=== PATIENT | male | born 1955 | race Caucasian/White ===

== ENCOUNTER 2017-02-05 10:37 | Inpatient (IN) | payer SELFPAY ==
[~2017-02-05] VITALS: Ht 195.6 cm; Wt 136.6 kg
[~2017-02-05 10:37] MED LIST: AMLODIPINE BESYL5 MG PO; ASPIR 8181 M1 PO; BACTRIM,SEPT1 TABLET PO; GLUCOPHAGE500 MG PO; KEFLEX500 MG PO; LISINOPRIL5 MG PO; PERCOCET 5/31 TABLET PO
[2017-02-05 11:46] LABS: BASOPHIL COUNT 0.1 K/uL (0-0.1); EOSINOPHIL (%) 0.5 % (0-5); EOSINOPHIL COUNT 0.1 K/uL (0-0.3); HEMATOCRIT 40.8 % (38.0-50.0); IMMATURE GRANULOCYTE (%) 0.6 % (0.0-0.7); IMMATURE GRANULOCYTE COUNT 0.1 K/uL; INSTRUMENT ABS NEUTROPHIL CT 11.3 K/uL; LYMPHOCYTE COUNT 1.9 K/uL (1.0-2.8); MCH 29.4 PG (29.0-34.0); MCHC 34.1 G/DL (30.0-36.0); MCV 86.4 FL (86-99); MEAN PLAT.VOLUME 10.1 uM^3 (9.0-12.4); MONOCYTE (%) 10.2 % (3-12); MONOCYTE COUNT 1.5 K/uL (0-0.8); NEUTROPHIL (%) 75.9 % (45-76); NEUTROPHIL COUNT 11.3 K/uL (1.8-6.4); PLATELET COUNT 391 K/uL (156-360); RBC DIS.WIDTH-CV 12.5 % (11.8-14.6); RBC DIS.WIDTH-SD 39.8 % (39-53); RED BLOOD COUNT 4.72 M/uL (4.00-5.50); WHITE BLOOD COUNT 14.9 K/uL (4.1-10.2)
[2017-02-05 11:58] LABS: CHLORIDE 100 mEq/L (99-109); POTASSIUM 3.9 mEq/L (3.7-5.4); SODIUM 134 mEq/L (136-147)
[2017-02-05 12:00] LABS: GLUCOSE 125 mg/dL (70-99)
[2017-02-05 12:01] LABS: ANION GAP 12 MEQ/L (2-14)
[2017-02-05 12:02] LABS: TOTAL BILIRUBIN 0.6 mg/dL (0.0-1.0)
[2017-02-05 12:03] LABS: ALKALINE PHOSPHATASE 88 IU/L (3-129)
[2017-02-05 12:04] LABS: GFR ESTIMATE (CALCULATED) > 59 mL/min/
[2017-02-05 12:05] LABS: UREA NITROGEN (BUN) 9 mg/dL (9-23)
[2017-02-05 12:22] LABS: ADD MIUA? NO; BILIRUBIN NEGATIVE; BLOOD NEGATIVE; COLOR YELLOW ((YELLOW)); GLUCOSE (STRIP) NEGATIVE; KETONES 20; LEUKOCYTES NEGATIVE; NITRITE NEGATIVE; PROTEIN (STRIP) NEGATIVE; UCUL ADDED? NO
[2017-02-05] MEDS ORDERED: LACTULOSE10 GM/151 PO (12:23)
[2017-02-05] MEDS ORDERED: DOCUSATE SODIU100 MG PO (12:24)
[2017-02-05 12:34] LABS: SPECIFIC GRAVITY > 1.080 (1.000-1.030)
[2017-02-05 13:42] LABS: INTER. NORMALIZED RATIO 1.1; PROTHROMBIN TIME 12.9 SEC (10.2-12.9)
[2017-02-05 15:07] VITALS: BP 184/99
[2017-02-05 17:48] LABS: POINT-OF-CARE METER ID UU14188625
[2017-02-05 19:24] VITALS: BP 171/89
[2017-02-06 06:34] LABS: HEMATOCRIT 38.1 % (38.0-50.0); MCH 28.7 PG (29.0-34.0); MCHC 32.8 G/DL (30.0-36.0); MCV 87.4 FL (86-99); MEAN PLAT.VOLUME 10.5 uM^3 (9.0-12.4); PLATELET COUNT 384 K/uL (156-360); RBC DIS.WIDTH-CV 12.6 % (11.8-14.6); RED BLOOD COUNT 4.36 M/uL (4.00-5.50); WHITE BLOOD COUNT 13.9 K/uL (4.1-10.2)
[2017-02-06 06:46] LABS: INTER. NORMALIZED RATIO 1.1
[2017-02-06 06:49] LABS: PTT 31.4 SEC (25-37)
[2017-02-06 06:56] LABS: ANION GAP 9 MEQ/L (2-14); CHLORIDE 100 MEQ/L (99-109); GFR ESTIMATE (CALCULATED) > 59 mL/min/; GLUCOSE 133 mg/dL (70-99); POTASSIUM 4.3 MEQ/L (3.7-5.4); SAMPLE HEMOLYSIS CHECK 0; SAMPLE ICTERIC CHECK 0; SAMPLE LIPEMIA CHECK 0; SODIUM 134 MEQ/L (136-147); UREA NITROGEN (BUN) 7 mg/dL (9-23)
[2017-02-06 07:01] VITALS: BP 147/65
[2017-02-06 07:06] LABS: POINT-OF-CARE METER ID UU13113717
[2017-02-06 11:14] LABS: POINT-OF-CARE METER ID UU13113717
[2017-02-06 11:21] VITALS: BP 135/64
[2017-02-06 15:12] VITALS: BP 147/70
[2017-02-06 19:23] VITALS: BP 140/63
[2017-02-06 20:53] LABS: POINT-OF-CARE METER ID UU14174225
[2017-02-06 23:48] VITALS: BP 173/77
[2017-02-07 03:14] VITALS: BP 140/68
[2017-02-07 07:05] LABS: POINT-OF-CARE METER ID UU14174225
[2017-02-07 07:08] VITALS: BP 140/68
[2017-02-07 10:01] LABS: HEMATOCRIT 36.7 % (38.0-50.0); MCH 29.6 PG (29.0-34.0); MCHC 33.5 G/DL (30.0-36.0); MCV 88.2 FL (86-99); MEAN PLAT.VOLUME 10.2 uM^3 (9.0-12.4); PLATELET COUNT 351 K/uL (156-360); RBC DIS.WIDTH-CV 12.8 % (11.8-14.6); RBC DIS.WIDTH-SD 41.2 % (39-53); RED BLOOD COUNT 4.16 M/uL (4.00-5.50); WHITE BLOOD COUNT 10.6 K/uL (4.1-10.2)
[2017-02-07 11:10] VITALS: BP 142/63
[2017-02-07 11:15] LABS: POINT-OF-CARE METER ID UU14174225
[2017-02-07 15:04] VITALS: BP 174/86
[2017-02-07 16:15] LABS: POINT-OF-CARE METER ID UU13113717
[2017-02-07 19:56] VITALS: BP 163/79
[2017-02-07 21:21] LABS: POINT-OF-CARE METER ID UU14188625
[2017-02-07 23:20] VITALS: BP 136/65
[2017-02-08 07:50] VITALS: BP 151/86
[2017-02-08 08:28] LABS: POINT-OF-CARE METER ID UU14174225
[2017-02-08 08:52] LABS: HEMATOCRIT 41.1 % (38.0-50.0); MCH 28.5 PG (29.0-34.0); MCHC 32.8 G/DL (30.0-36.0); MCV 86.9 FL (86-99); PLATELET COUNT 395 K/uL (156-360); RBC DIS.WIDTH-CV 12.5 % (11.8-14.6); RBC DIS.WIDTH-SD 39.8 % (39-53); RED BLOOD COUNT 4.73 M/uL (4.00-5.50); WHITE BLOOD COUNT 11.4 K/uL (4.1-10.2)
[2017-02-08 09:24] LABS: ANION GAP 9 MEQ/L (2-14); CHLORIDE 101 MEQ/L (99-109); GFR ESTIMATE (CALCULATED) > 59 mL/min/; GLUCOSE 122 mg/dL (70-99); POTASSIUM 4.6 MEQ/L (3.7-5.4); SAMPLE HEMOLYSIS CHECK 0; SAMPLE ICTERIC CHECK 0; SAMPLE LIPEMIA CHECK 0; SODIUM 137 MEQ/L (136-147); UREA NITROGEN (BUN) 5 mg/dL (9-23)
[2017-02-08 14:11] LABS: POINT-OF-CARE METER ID UU13113717
[2017-02-08 16:40] VITALS: BP 180/96
[2017-02-09] MEDS ORDERED: VITAMIN D31000 UNIT PO (14:29)
== END 2017-02-08 17:10 | disposition left against medical advice (07) | DRG 392 ==
LOC: EME 10:37 → EDOF 11:56 → 5SOUTH 11:56 → ENRESERV 12:01 → EDOF 12:47 → ENRESERV 13:18 → 5SOUTH 14:44
PROVIDERS: Emergency Medicine; Internal Medicine; Nurse Practitioner Adult Health; Radiology Diagnostic Radiology
DX: K57.20 Diverticulitis of large intestine with perforation and abscess without bleeding (principal); E87.1 Hypo-osmolality and hyponatremia; E86.0 Dehydration; K59.00 Constipation, unspecified; E11.9 Type 2 diabetes mellitus without complications; I10 Essential (primary) hypertension; N40.1 Benign prostatic hyperplasia with lower urinary tract symptoms; R35.1 Nocturia; F41.0 Panic disorder [episodic paroxysmal anxiety]; K80.20 Calculus of gallbladder without cholecystitis without obstruction; F17.210 Nicotine dependence, cigarettes, uncomplicated; E66.01 Morbid (severe) obesity due to excess calories; Z68.35 Body mass index [BMI] 35.0-35.9, adult; Z79.84 Long term (current) use of oral hypoglycemic drugs; Z82.49 Family history of ischemic heart disease and other diseases of the circulatory system; Z87.19 Personal history of other diseases of the digestive system
CPT/HCPCS: 36415; 71010; 74177; 80048; 80053; 81003; 82378; 82565; 82948; 83605; 84520; 85025; 85027; 85610; 85730; 87040; 93005; 99281; 99284; G0103; J1650; J1815; J2543; J7030; J7050; S0028

== ENCOUNTER → 2017-02-22 | Outpatient (CLI) | payer OTHER ==
[~2017-02-22] MED LIST changes: +DOCUSATE SODIU100 MG PO; +LACTULOSE10 GM/151 PO; +VITAMIN D31000 UNIT PO
== END | disposition home or self-care (01) ==
LOC: RAD 09:23
DX: K57.30 Diverticulosis of large intestine without perforation or abscess without bleeding (principal); K57.32 Diverticulitis of large intestine without perforation or abscess without bleeding; K63.89 Other specified diseases of intestine
CPT/HCPCS: 74177

== ENCOUNTER 2017-03-13 06:21 | Inpatient (IN) | payer OTHER ==
[~2017-03-13] VITALS: Ht 195.6 cm; Wt 131.8 kg
[2017-03-13 07:37] LABS: BASOPHIL COUNT 0.1 K/uL (0-0.1); EOSINOPHIL (%) 1.3 % (0-5); EOSINOPHIL COUNT 0.1 K/uL (0-0.3); HEMATOCRIT 39.3 % (38.0-50.0); IMMATURE GRANULOCYTE (%) 0.6 % (0.0-0.7); IMMATURE GRANULOCYTE COUNT 0.1 K/uL; INSTRUMENT ABS NEUTROPHIL CT 7.3 K/uL; LYMPHOCYTE COUNT 1.9 K/uL (1.0-2.8); MCH 28.7 PG (29.0-34.0); MCHC 33.3 G/DL (30.0-36.0); MCV 86.2 FL (86-99); MEAN PLAT.VOLUME 10.4 uM^3 (9.0-12.4); MONOCYTE (%) 11.5 % (3-12); MONOCYTE COUNT 1.2 K/uL (0-0.8); NEUTROPHIL COUNT 7.3 K/uL (1.8-6.4); PLATELET COUNT 338 K/uL (156-360); RBC DIS.WIDTH-CV 14.3 % (11.8-14.6); RBC DIS.WIDTH-SD 45.1 % (39-53); RED BLOOD COUNT 4.56 M/uL (4.00-5.50); WHITE BLOOD COUNT 10.7 K/uL (4.1-10.2)
[2017-03-13 08:15] LABS: ALKALINE PHOSPHATASE 87 IU/L (3-129); ANION GAP 9 MEQ/L (2-14); CHLORIDE 105 MEQ/L (99-109); GFR ESTIMATE (CALCULATED) > 59 mL/min/ (58.99-99999); GLUCOSE 153 mg/dL (70-99); LIPASE 8 U/L (1.0-51.0); SAMPLE HEMOLYSIS CHECK 0; SAMPLE ICTERIC CHECK 0; SAMPLE LIPEMIA CHECK 0; SODIUM 138 MEQ/L (136-147); TOTAL BILIRUBIN 0.5 MG/DL (0.0-1.0); UREA NITROGEN (BUN) 11 mg/dL (9-23)
[2017-03-13 09:17] LABS: C DIFF TOXIN NEGATIVE (NEGATIVE)
[2017-03-13 09:18] LABS: PROBE CHECK PASS; SPECIMEN PROCESSING CONTROL PASS
[2017-03-13] MEDS ORDERED: MIRALAX17 GM PO (10:55)
[2017-03-13 11:01] LABS: ADD MIUA? NO; BILIRUBIN NEGATIVE; BLOOD NEGATIVE; COLOR YELLOW ((YELLOW)); GLUCOSE (STRIP) NEGATIVE; KETONES NEGATIVE; LEUKOCYTES NEGATIVE; NITRITE NEGATIVE; PROTEIN (STRIP) NEGATIVE; UCUL ADDED? NO
[2017-03-13 11:11] LABS: SPECIFIC GRAVITY 1.055 (1.000-1.030)
[2017-03-13 11:23] VITALS: BP 165/88
[2017-03-13] MEDS ORDERED: METFORMIN HCL500 MG PO (17:53)
[2017-03-13] MEDS ORDERED: FISH OIL 1,0001 EAC7 PO (17:59)
[2017-03-14] MEDS ORDERED: FLAGYL500 MG PO ×3 (15:58→16:04)
[2017-03-14] MEDS ORDERED: BACTRIM,SEPT1 TABLET PO (15:58)
== END 2017-03-13 11:24 | disposition left against medical advice (07) | DRG 392 ==
LOC: EME 06:21 → EDOF 11:08 → ENRESERV 11:10 → CANRESERV 11:10 → EDOF 11:24
PROVIDERS: Emergency Medicine
DX: K57.20 Diverticulitis of large intestine with perforation and abscess without bleeding (principal); I10 Essential (primary) hypertension; F17.200 Nicotine dependence, unspecified, uncomplicated; N50.819 Testicular pain, unspecified; Z53.29 Procedure and treatment not carried out because of patient's decision for other reasons
CPT/HCPCS: 74177; 80053; 81003; 83690; 85025; 87493; 99281; 99284; J7030

== ENCOUNTER 2017-03-13 16:00 | Inpatient (IN) | payer OTHER ==
[~2017-03-13] VITALS: Ht 195.6 cm; Wt 125.4 kg
[~2017-03-13 16:00] MED LIST changes: +MIRALAX17 GM PO
[2017-03-13 17:16] LABS: MCH 28.4 PG (29.0-34.0); MCHC 32.8 G/DL (30.0-36.0); MCV 86.7 FL (86-99); MEAN PLAT.VOLUME 10.1 uM^3 (9.0-12.4); PLATELET COUNT 320 K/uL (156-360); RBC DIS.WIDTH-SD 44.6 % (39-53); WHITE BLOOD COUNT 11.7 K/uL (4.1-10.2)
[2017-03-13] MEDS ORDERED: METFORMIN HCL500 MG PO (17:53)
[2017-03-13] MEDS ORDERED: FISH OIL 1,0001 EAC7 PO (17:59)
[2017-03-13 19:26] VITALS: BP 154/76
[2017-03-14 06:44] LABS: EOSINOPHIL (%) 0.8 % (0-5); EOSINOPHIL COUNT 0.1 K/uL (0-0.3); HEMATOCRIT 36.5 % (38.0-50.0); IMMATURE GRANULOCYTE (%) 0.5 % (0.0-0.7); IMMATURE GRANULOCYTE COUNT 0.1 K/uL; INSTRUMENT ABS NEUTROPHIL CT 7.9 K/uL; LYMPHOCYTE COUNT 1.6 K/uL (1.0-2.8); MCH 28.2 PG (29.0-34.0); MCHC 32.6 G/DL (30.0-36.0); MCV 86.5 FL (86-99); MEAN PLAT.VOLUME 10.2 uM^3 (9.0-12.4); MONOCYTE (%) 11.2 % (3-12); MONOCYTE COUNT 1.2 K/uL (0-0.8); NEUTROPHIL (%) 72.8 % (45-76); NEUTROPHIL COUNT 7.9 K/uL (1.8-6.4); PLATELET COUNT 303 K/uL (156-360); RBC DIS.WIDTH-CV 14.2 % (11.8-14.6); RBC DIS.WIDTH-SD 45.4 % (39-53); RED BLOOD COUNT 4.22 M/uL (4.00-5.50); WHITE BLOOD COUNT 10.8 K/uL (4.1-10.2)
[2017-03-14 07:11] LABS: ANION GAP 11 MEQ/L (2-14); CHLORIDE 106 MEQ/L (99-109); GFR ESTIMATE (CALCULATED) > 59 mL/min/ (58.99-99999); GLUCOSE 128 mg/dL (70-99); POTASSIUM 4.3 MEQ/L (3.7-5.4); SAMPLE HEMOLYSIS CHECK 0; SAMPLE ICTERIC CHECK 0; SAMPLE LIPEMIA CHECK 0; SODIUM 139 MEQ/L (136-147); UREA NITROGEN (BUN) 9 mg/dL (9-23)
[2017-03-14 07:55] VITALS: BP 160/84
[2017-03-14] MEDS ORDERED: BACTRIM,SEPT1 TABLET PO (15:58)
[2017-03-14] MEDS ORDERED: FLAGYL500 MG PO ×3 (15:58→16:04)
== END 2017-03-14 16:10 | disposition home or self-care (01) | DRG 392 ==
LOC: EME 16:00 → EDOF 18:42 → ENRESERV 18:43 → 5EAST 19:11
PROVIDERS: Hospitalist; Physician Assistant Medical
DX: K57.20 Diverticulitis of large intestine with perforation and abscess without bleeding (principal); I10 Essential (primary) hypertension; E11.9 Type 2 diabetes mellitus without complications; G47.30 Sleep apnea, unspecified; F17.210 Nicotine dependence, cigarettes, uncomplicated; E66.9 Obesity, unspecified; Z68.32 Body mass index [BMI] 32.0-32.9, adult; Z79.82 Long term (current) use of aspirin; Z79.84 Long term (current) use of oral hypoglycemic drugs; Z23 Encounter for immunization
CPT/HCPCS: 80048; 83605; 85025; 85027; 87040; 90686; 99281; 99285; J1644; J1885; J2543; J7030; J7050

== ENCOUNTER → 2017-04-01 | Outpatient (CLI) | payer OTHER ==
[~2017-04-01] VITALS: Ht 195.6 cm; Wt 126.6 kg
[~2017-04-01] MED LIST changes: +ATENOLOL25 MG PO; +BACTRIM,SEPT1 TABLE1 PO; +FISH OIL 1,0001 EAC7 PO; +FLAGYL500 MG PO; +METFORMIN HCL500 MG PO; +TAPAZOLE5 MG PO
== END | disposition home or self-care (01) ==
LOC: AMB 03-25 10:45
PROVIDERS: Internal Medicine Gastroenterology
PROC: 0DBE8ZX Excision of Large Intestine, Via Natural or Artificial Opening Endoscopic, Diagnostic (ICD-10-PCS; principal; 2017-04-01)
DX: K57.30 Diverticulosis of large intestine without perforation or abscess without bleeding (principal); K63.2 Fistula of intestine; Z53.09 Procedure and treatment not carried out because of other contraindication; K59.00 Constipation, unspecified; I10 Essential (primary) hypertension; E11.9 Type 2 diabetes mellitus without complications; Z86.010 Personal history of colon polyps; I25.10 Atherosclerotic heart disease of native coronary artery without angina pectoris; Z95.5 Presence of coronary angioplasty implant and graft; F17.200 Nicotine dependence, unspecified, uncomplicated; Z82.49 Family history of ischemic heart disease and other diseases of the circulatory system; Z79.84 Long term (current) use of oral hypoglycemic drugs; Z79.82 Long term (current) use of aspirin; Z88.8 Allergy status to other drugs, medicaments and biological substances
CPT/HCPCS: 82948; 88305; J2250; J3010

== ENCOUNTER 2017-04-02 11:24 | Inpatient (IN) | payer OTHER ==
[~2017-04-02] VITALS: Ht 195.6 cm; Wt 135.5 kg
[2017-04-02 12:23] LABS: HEMATOCRIT 39.3 % (38.0-50.0); MCHC 33.1 G/DL (30.0-36.0); MCV 84.7 FL (86-99); RBC DIS.WIDTH-CV 14.3 % (11.8-14.6); RBC DIS.WIDTH-SD 44.1 % (39-53); RED BLOOD COUNT 4.64 M/uL (4.00-5.50); WHITE BLOOD COUNT 13.9 K/uL (4.1-10.2)
[2017-04-02 12:27] LABS: PLATELET COUNT 442 K/uL (156-360)
[2017-04-02 12:31] LABS: ALBUMIN 3.3 g/dL (3.2-4.8); CHLORIDE 100 mEq/L (99-109); POTASSIUM 3.7 mEq/L (3.7-5.4); SODIUM 137 mEq/L (136-147)
[2017-04-02 12:33] LABS: GLUCOSE 111 mg/dL (70-99)
[2017-04-02 12:34] LABS: TOTAL PROTEIN 7.1 g/dL (6.4-8.3)
[2017-04-02 12:35] LABS: TOTAL BILIRUBIN 0.5 mg/dL (0.0-1.0)
[2017-04-02 12:37] LABS: ALKALINE PHOSPHATASE 82 IU/L (3-129); CREATININE 0.8 mg/dL (0.6-1.3); GFR ESTIMATE (CALCULATED) > 59 mL/min/ (58.99-99999)
[2017-04-02 12:38] LABS: UREA NITROGEN (BUN) 8 mg/dL (9-23)
[2017-04-02 12:39] LABS: AST (GOT) 47 IU/L (2-34)
[2017-04-02 12:40] LABS: ALT (GPT) 86 IU/L (3-49)
[2017-04-02 13:46] LABS: PREALBUMIN 7.4 mg/dL (10-40)
[2017-04-02 16:55] VITALS: BP 128/60
[2017-04-02 21:30] VITALS: BP 151/82
[2017-04-03 00:30] VITALS: BP 145/70
[2017-04-03 07:00] LABS: HEMATOCRIT 34.8 % (38.0-50.0); HEMOGLOBIN 11.5 G/DL (12.5-16.6); MCH 27.7 PG (29.0-34.0); MCV 83.9 FL (86-99); PLATELET COUNT 365 K/uL (156-360); RBC DIS.WIDTH-CV 14.3 % (11.8-14.6); RBC DIS.WIDTH-SD 43.8 % (39-53); RED BLOOD COUNT 4.15 M/uL (4.00-5.50); WHITE BLOOD COUNT 13.8 K/uL (4.1-10.2)
[2017-04-03 07:25] LABS: CHLORIDE 102 MEQ/L (99-109); CREATININE 0.6 MG/DL (0.6-1.3); GFR ESTIMATE (CALCULATED) > 59 mL/min/ (58.99-99999); GLUCOSE 150 mg/dL (70-99); MAGNESIUM 1.7 mg/dl (1.3-2.7); PHOSPHORUS 3.2 mg/dL (2.5-4.9); POTASSIUM 3.3 MEQ/L (3.7-5.4); SODIUM 134 MEQ/L (136-147); TRIGLYCERIDES 93 MG/DL (Normal: <150); UREA NITROGEN (BUN) 4 mg/dL (9-23)
[2017-04-03 07:49] LABS: Estimated Average Glucose 163 mg/dL (70-123); HEMOGLOBIN A1c (GLYCOHEMOGLOB) 7.3 % HGB (Below 5.7)
[2017-04-03 08:00] VITALS: BP 157/78
[2017-04-04 04:59] LABS: HEMATOCRIT 35.6 % (38.0-50.0); MCH 28.2 PG (29.0-34.0); MCHC 33.7 G/DL (30.0-36.0); MCV 83.8 FL (86-99); PLATELET COUNT 354 K/uL (156-360); RBC DIS.WIDTH-CV 14.3 % (11.8-14.6); RBC DIS.WIDTH-SD 43.8 % (39-53); RED BLOOD COUNT 4.25 M/uL (4.00-5.50); WHITE BLOOD COUNT 14.3 K/uL (4.1-10.2)
[2017-04-04 05:12] LABS: CHLORIDE 101 mEq/L (99-109); SODIUM 133 mEq/L (136-147)
[2017-04-04 05:13] LABS: MAGNESIUM 1.8 mg/dL (1.3-2.7)
[2017-04-04 05:15] LABS: GLUCOSE 151 mg/dL (70-99)
[2017-04-04 05:18] LABS: CREATININE 0.7 mg/dL (0.6-1.3); GFR ESTIMATE (CALCULATED) > 59 mL/min/ (58.99-99999); PHOSPHORUS 3.5 mg/dL (2.5-4.9)
[2017-04-04 05:19] LABS: UREA NITROGEN (BUN) 4 mg/dL (9-23)
[2017-04-04 08:00] VITALS: BP 130/63
[2017-04-04 20:30] VITALS: BP 145/78
[2017-04-05 06:30] LABS: APPEARANCE CLEAR ((CLEAR)); BILIRUBIN NEGATIVE; BLOOD SMALL; COLOR YELLOW ((YELLOW)); GLUCOSE (STRIP) 50; KETONES NEGATIVE; LEUKOCYTES NEGATIVE; NITRITE NEGATIVE; PROTEIN (STRIP) NEGATIVE; SPECIFIC GRAVITY 1.016 (1.000-1.030)
[2017-04-05 06:39] LABS: BASOPHIL (%) 0.3 % (0-1); EOSINOPHIL (%) 0.5 % (0-5); EOSINOPHIL COUNT 0.1 K/uL (0-0.3); HEMATOCRIT 38.9 % (38.0-50.0); HEMOGLOBIN 12.7 G/DL (12.5-16.6); IMMATURE GRANULOCYTE (%) 0.5 % (0.0-0.7); LYMPHOCYTE (%) 12.5 % (15-42); LYMPHOCYTE COUNT 1.6 K/uL (1.0-2.8); MCH 27.3 PG (29.0-34.0); MCHC 32.6 G/DL (30.0-36.0); MCV 83.5 FL (86-99); MONOCYTE (%) 12.2 % (3-12); MONOCYTE COUNT 1.6 K/uL (0-0.8); NEUTROPHIL COUNT 9.5 K/uL (1.8-6.4); PLATELET COUNT 403 K/uL (156-360); RBC DIS.WIDTH-CV 14.4 % (11.8-14.6); RBC DIS.WIDTH-SD 43.9 % (39-53); RED BLOOD COUNT 4.66 M/uL (4.00-5.50); WHITE BLOOD COUNT 12.9 K/uL (4.1-10.2)
[2017-04-05 06:42] LABS: BACTERIA 1+ /HPF; EPITHELIAL CELLS RARE /HPF; MUCUS TRACE /LPF; RED BLOOD CELLS 0-5 /HPF (0-5); UCUL ADDED? YES
[2017-04-05 06:47] LABS: INTER. NORMALIZED RATIO 1.2
[2017-04-05 07:14] LABS: ALKALINE PHOSPHATASE 82 IU/L (3-129); ALT (GPT) 88 IU/L (3-49); AST (GOT) 51 IU/L (2-34); CHLORIDE 103 MEQ/L (99-109); CREATININE 0.6 MG/DL (0.6-1.3); GFR ESTIMATE (CALCULATED) > 59 mL/min/ (58.99-99999); GLUCOSE 138 mg/dL (70-99); PHOSPHORUS 3.7 mg/dL (2.5-4.9); POTASSIUM 3.8 MEQ/L (3.7-5.4); PREALBUMIN 6.8 mg/dL (10-40); SODIUM 135 MEQ/L (136-147); TOTAL BILIRUBIN 0.4 MG/DL (0.0-1.0); TOTAL PROTEIN 6.6 G/DL (6.4-8.3); TRIGLYCERIDES 124 MG/DL (Normal: <150); UREA NITROGEN (BUN) 9 mg/dL (9-23)
[2017-04-05 07:24] LABS: MAGNESIUM 2.1 mg/dl (1.3-2.7)
[2017-04-05 07:55] VITALS: BP 138/84
[2017-04-05 11:33] VITALS: BP 159/77
[2017-04-05 20:55] VITALS: BP 150/83
[2017-04-06 00:13] VITALS: BP 167/76
[2017-04-06 02:10] VITALS: BP 115/74
[2017-04-06 04:15] VITALS: BP 136/62
[2017-04-06 06:47] LABS: HEMATOCRIT 33.6 % (38.0-50.0); HEMOGLOBIN 11.1 G/DL (12.5-16.6); MCH 27.5 PG (29.0-34.0); MCV 83.2 FL (86-99); PLATELET COUNT 341 K/uL (156-360); RBC DIS.WIDTH-CV 14.2 % (11.8-14.6); RBC DIS.WIDTH-SD 43.5 % (39-53); RED BLOOD COUNT 4.04 M/uL (4.00-5.50); WHITE BLOOD COUNT 18.7 K/uL (4.1-10.2)
[2017-04-06 06:49] LABS: CHLORIDE 108 MEQ/L (99-109); CREATININE 0.5 MG/DL (0.6-1.3); GFR ESTIMATE (CALCULATED) > 59 mL/min/ (58.99-99999); GLUCOSE 179 mg/dL (70-99); MAGNESIUM 1.9 mg/dl (1.3-2.7); PHOSPHORUS 3.5 mg/dL (2.5-4.9); POTASSIUM 4.5 MEQ/L (3.7-5.4); SODIUM 138 MEQ/L (136-147); UREA NITROGEN (BUN) 13 mg/dL (9-23)
[2017-04-06 08:21] VITALS: BP 128/60
[2017-04-06 11:45] VITALS: BP 151/66
[2017-04-06 20:48] VITALS: BP 140/64
[2017-04-07 05:50] LABS: HEMOGLOBIN 10.6 G/DL (12.5-16.6); MCH 27.5 PG (29.0-34.0); MCHC 33.1 G/DL (30.0-36.0); MCV 83.1 FL (86-99); PLATELET COUNT 283 K/uL (156-360); RBC DIS.WIDTH-CV 14.6 % (11.8-14.6); RBC DIS.WIDTH-SD 43.9 % (39-53); RED BLOOD COUNT 3.85 M/uL (4.00-5.50); WHITE BLOOD COUNT 18.5 K/uL (4.1-10.2)
[2017-04-07 06:13] LABS: CHLORIDE 109 MEQ/L (99-109); CREATININE 0.5 MG/DL (0.6-1.3); GFR ESTIMATE (CALCULATED) > 59 mL/min/ (58.99-99999); GLUCOSE 163 mg/dL (70-99); MAGNESIUM 1.9 mg/dl (1.3-2.7); PHOSPHORUS 3.2 mg/dL (2.5-4.9); SODIUM 138 MEQ/L (136-147); UREA NITROGEN (BUN) 14 mg/dL (9-23)
[2017-04-07 08:13] VITALS: BP 196/87
[2017-04-07 14:07] VITALS: BP 162/84
[2017-04-07 17:02] VITALS: BP 172/82
[2017-04-07 19:45] VITALS: BP 168/89
[2017-04-07 23:55] VITALS: BP 167/85
[2017-04-08 06:04] LABS: HEMATOCRIT 31.7 % (38.0-50.0); HEMOGLOBIN 10.7 G/DL (12.5-16.6); MCH 27.9 PG (29.0-34.0); MCHC 33.8 G/DL (30.0-36.0); MCV 82.8 FL (86-99); PLATELET COUNT 305 K/uL (156-360); RBC DIS.WIDTH-CV 14.7 % (11.8-14.6); RBC DIS.WIDTH-SD 45.1 % (39-53); RED BLOOD COUNT 3.83 M/uL (4.00-5.50); WHITE BLOOD COUNT 16.9 K/uL (4.1-10.2)
[2017-04-08 06:30] LABS: CHLORIDE 112 MEQ/L (99-109); CREATININE 0.5 MG/DL (0.6-1.3); GFR ESTIMATE (CALCULATED) > 59 mL/min/ (58.99-99999); GLUCOSE 175 mg/dL (70-99); PHOSPHORUS 4.1 mg/dL (2.5-4.9); POTASSIUM 3.8 MEQ/L (3.7-5.4); SODIUM 144 MEQ/L (136-147); UREA NITROGEN (BUN) 17 mg/dL (9-23)
[2017-04-08 12:33] VITALS: BP 168/97
[2017-04-08 16:00] VITALS: BP 170/92
[2017-04-09 07:19] LABS: HEMATOCRIT 29.8 % (38.0-50.0); HEMOGLOBIN 9.9 G/DL (12.5-16.6); MCH 27.5 PG (29.0-34.0); MCHC 33.2 G/DL (30.0-36.0); MCV 82.8 FL (86-99); PLATELET COUNT 404 K/uL (156-360); RBC DIS.WIDTH-CV 14.9 % (11.8-14.6); RBC DIS.WIDTH-SD 45.3 % (39-53); WHITE BLOOD COUNT 12.7 K/uL (4.1-10.2)
[2017-04-09 07:40] LABS: CHLORIDE 112 MEQ/L (99-109); CREATININE 0.5 MG/DL (0.6-1.3); GFR ESTIMATE (CALCULATED) > 59 mL/min/ (58.99-99999); GLUCOSE 177 mg/dL (70-99); PHOSPHORUS 3.7 mg/dL (2.5-4.9); SODIUM 142 MEQ/L (136-147); UREA NITROGEN (BUN) 17 mg/dL (9-23)
[2017-04-09 08:11] VITALS: BP 163/77
[2017-04-09 16:34] VITALS: BP 156/74
[2017-04-09 21:16] VITALS: BP 168/72
[2017-04-09 23:30] VITALS: BP 186/89
[2017-04-10 05:57] LABS: HEMATOCRIT 29.4 % (38.0-50.0); HEMOGLOBIN 9.6 G/DL (12.5-16.6); MCH 26.9 PG (29.0-34.0); MCHC 32.7 G/DL (30.0-36.0); MCV 82.4 FL (86-99); PLATELET COUNT 394 K/uL (156-360); RBC DIS.WIDTH-CV 15.1 % (11.8-14.6); RBC DIS.WIDTH-SD 45.6 % (39-53); RED BLOOD COUNT 3.57 M/uL (4.00-5.50); WHITE BLOOD COUNT 14.7 K/uL (4.1-10.2)
[2017-04-10 06:22] LABS: CHLORIDE 110 MEQ/L (99-109); CREATININE 0.4 MG/DL (0.6-1.3); GFR ESTIMATE (CALCULATED) > 59 mL/min/ (58.99-99999); GLUCOSE 153 mg/dL (70-99); PHOSPHORUS 3.6 mg/dL (2.5-4.9); SODIUM 141 MEQ/L (136-147); UREA NITROGEN (BUN) 16 mg/dL (9-23)
[2017-04-10 09:17] VITALS: BP 182/89
[2017-04-10 15:02] VITALS: BP 177/82
[2017-04-10 23:52] VITALS: BP 133/61
[2017-04-11 03:48] VITALS: BP 161/75
[2017-04-11 05:38] LABS: HEMATOCRIT 28.8 % (38.0-50.0); HEMOGLOBIN 9.7 G/DL (12.5-16.6); MCH 27.9 PG (29.0-34.0); MCHC 33.7 G/DL (30.0-36.0); MCV 82.8 FL (86-99); PLATELET COUNT 392 K/uL (156-360); RBC DIS.WIDTH-CV 15.1 % (11.8-14.6); RBC DIS.WIDTH-SD 45.3 % (39-53); RED BLOOD COUNT 3.48 M/uL (4.00-5.50); WHITE BLOOD COUNT 16.8 K/uL (4.1-10.2)
[2017-04-11 06:01] LABS: CHLORIDE 109 MEQ/L (99-109); CREATININE 0.4 MG/DL (0.6-1.3); GFR ESTIMATE (CALCULATED) > 59 mL/min/ (58.99-99999); GLUCOSE 152 mg/dL (70-99); MAGNESIUM 2.1 mg/dl (1.3-2.7); POTASSIUM 4.4 MEQ/L (3.7-5.4); SODIUM 137 MEQ/L (136-147); UREA NITROGEN (BUN) 16 mg/dL (9-23)
[2017-04-11 08:28] VITALS: BP 173/84
[2017-04-11 11:43] VITALS: BP 171/83
[2017-04-11 16:23] VITALS: BP 161/81
[2017-04-11 20:52] VITALS: BP 144/78
[2017-04-11 23:27] VITALS: BP 143/84
[2017-04-12 06:50] LABS: HEMATOCRIT 30.8 % (38.0-50.0); HEMOGLOBIN 10.1 G/DL (12.5-16.6); MCH 27.4 PG (29.0-34.0); MCHC 32.8 G/DL (30.0-36.0); MCV 83.5 FL (86-99); PLATELET COUNT 432 K/uL (156-360); RBC DIS.WIDTH-CV 15.3 % (11.8-14.6); RBC DIS.WIDTH-SD 45.9 % (39-53); RED BLOOD COUNT 3.69 M/uL (4.00-5.50)
[2017-04-12 07:06] LABS: ALBUMIN 2.4 G/DL (3.2-4.8); ALKALINE PHOSPHATASE 144 IU/L (3-129); ALT (GPT) 67 IU/L (3-49); AST (GOT) 30 IU/L (2-34); CHLORIDE 107 MEQ/L (99-109); CREATININE 0.5 MG/DL (0.6-1.3); DIRECT BILIRUBIN 0.2 mg/dL (0.0-0.3); GFR ESTIMATE (CALCULATED) > 59 mL/min/ (58.99-99999); GLUCOSE 153 mg/dL (70-99); MAGNESIUM 1.9 mg/dl (1.3-2.7); PHOSPHORUS 3.6 mg/dL (2.5-4.9); POTASSIUM 4.4 MEQ/L (3.7-5.4); PREALBUMIN 12.7 mg/dL (10-40); SODIUM 137 MEQ/L (136-147); TOTAL BILIRUBIN 0.4 MG/DL (0.0-1.0); TOTAL PROTEIN 5.7 G/DL (6.4-8.3); TRIGLYCERIDES 145 MG/DL (Normal: <150); UREA NITROGEN (BUN) 15 mg/dL (9-23)
[2017-04-12 07:07] LABS: ALBUMIN 2.4 G/DL (3.2-4.8); ALKALINE PHOSPHATASE 145 IU/L (3-129); ALT (GPT) 63 IU/L (3-49); AST (GOT) 28 IU/L (2-34); CHLORIDE 107 MEQ/L (99-109); CREATININE 0.5 MG/DL (0.6-1.3); GFR ESTIMATE (CALCULATED) > 59 mL/min/ (58.99-99999); GLUCOSE 143 mg/dL (70-99); POTASSIUM 4.3 MEQ/L (3.7-5.4); SODIUM 137 MEQ/L (136-147); TOTAL BILIRUBIN 0.4 MG/DL (0.0-1.0); TOTAL PROTEIN 5.8 G/DL (6.4-8.3); UREA NITROGEN (BUN) 15 mg/dL (9-23)
[2017-04-12 08:38] VITALS: BP 170/82
[2017-04-12 16:30] VITALS: BP 170/83
[2017-04-13 00:05] VITALS: BP 122/70
[2017-04-13 08:33] VITALS: BP 170/83
[2017-04-13] MEDS ORDERED: CIPROFLOXACIN500 M1 PO (13:40)
[2017-04-13] MEDS ORDERED: MYCOSTATIN 100,60 ML PO (13:40)
[2017-04-13] MEDS ORDERED: METRONIDAZOLE500 MG PO (13:40)
[2017-04-13] MEDS ORDERED: HYDROMORPHONE HC2 MG PO (13:49)
== END 2017-04-13 16:30 | disposition home health service (06) | DRG 329 ==
LOC: EME 11:24 → 4SOUTH 12:59 → EDOF 12:59 → ENRESERV 13:23 → EDOF 14:06 → ENRESERV 14:16 → 4SOUTH 16:00
PROVIDERS: Physician Assistant; Surgery
PROC: 3E0436Z Introduction of Nutritional Substance into Central Vein, Percutaneous Approach (ICD-10-PCS; principal; 2017-04-03)
PROC: 0D1L0Z4 Bypass Transverse Colon to Cutaneous, Open Approach (ICD-10-PCS; 2017-04-05)
PROC: 0DTN0ZZ Resection of Sigmoid Colon, Open Approach (ICD-10-PCS; 2017-04-05)
PROC: 0W9J0ZZ Drainage of Pelvic Cavity, Open Approach (ICD-10-PCS; 2017-04-05)
PROC: 0DNP0ZZ Release Rectum, Open Approach (ICD-10-PCS; 2017-04-05)
PROC: 0T788DZ Dilation of Bilateral Ureters with Intraluminal Device, Via Natural or Artificial Opening Endoscopic (ICD-10-PCS; 2017-04-05)
PROC: 0DTG0ZZ Resection of Left Large Intestine, Open Approach (ICD-10-PCS; 2017-04-05)
PROC: 0DBU0ZZ Excision of Omentum, Open Approach (ICD-10-PCS; 2017-04-05)
PROC: 0DNE0ZZ Release Large Intestine, Open Approach (ICD-10-PCS; 2017-04-05)
DX: K57.20 Diverticulitis of large intestine with perforation and abscess without bleeding (principal); K65.1 Peritoneal abscess; K56.699 Other intestinal obstruction unspecified as to partial versus complete obstruction; K56.690 Other partial intestinal obstruction; E43 Unspecified severe protein-calorie malnutrition; K56.7 Ileus, unspecified; E87.1 Hypo-osmolality and hyponatremia; K66.0 Peritoneal adhesions (postprocedural) (postinfection); E86.0 Dehydration; B96.5 Pseudomonas (aeruginosa) (mallei) (pseudomallei) as the cause of diseases classified elsewhere; E87.6 Hypokalemia; B37.9 Candidiasis, unspecified; D53.9 Nutritional anemia, unspecified; E11.9 Type 2 diabetes mellitus without complications; I10 Essential (primary) hypertension; N35.8 Other urethral stricture; F17.200 Nicotine dependence, unspecified, uncomplicated; E66.9 Obesity, unspecified; Z68.35 Body mass index [BMI] 35.0-35.9, adult; Z79.2 Long term (current) use of antibiotics; Z79.84 Long term (current) use of oral hypoglycemic drugs; Z79.82 Long term (current) use of aspirin; Z87.442 Personal history of urinary calculi
CPT/HCPCS: 76937; 80048; 80053; 80076; 81003; 82948; 83036; 83735; 84100; 84134; 84478; 84540; 84630 90; 85025; 85027; 85610; 85730; 86850; 86900; 86901; 86920; 87070; 87075; 87076; 87077; 87086; 87186; 87205; 88302; 88305; 88307; 97530 GO; 99281; 99285; C1769; J0131; J0330; J1100; J1170; J1650; J1815; J2001; J2250; J2405; J2710; J2795; J3010; J3475; J3480; J7050; J7120; S0028; S0074

== ENCOUNTER 2017-10-15 21:59 | Inpatient (IN) | payer OTHER ==
[~2017-10-15] VITALS: Ht 195.6 cm; Wt 128.6 kg
[~2017-10-15 21:59] MED LIST changes: +CIPROFLOXACIN500 M1 PO; +HYDROMORPHONE HC2 MG PO; +METRONIDAZOLE500 MG PO; +MYCOSTATIN 100,60 ML PO
[2017-10-15 23:59] LABS: BASOPHIL (%) 0.5 % (0-1); BASOPHIL COUNT 0.1 K/uL (0-0.1); EOSINOPHIL (%) 0.4 % (0-5); EOSINOPHIL COUNT 0.1 K/uL (0-0.3); HEMATOCRIT 47.8 % (38.0-50.0); IMMATURE GRANULOCYTE (%) 0.7 % (0.0-0.7); LYMPHOCYTE (%) 16.3 % (15-42); MCH 30.4 PG (29.0-34.0); MCHC 33.5 G/DL (30.0-36.0); MCV 90.9 FL (86-99); MONOCYTE (%) 5.6 % (3-12); MONOCYTE COUNT 0.7 K/uL (0-0.8); NEUTROPHIL (%) 76.5 % (45-76); NEUTROPHIL COUNT 9.3 K/uL (1.8-6.4); PLATELET COUNT 241 K/uL (156-360); RBC DIS.WIDTH-CV 15.2 % (11.8-14.6); RBC DIS.WIDTH-SD 50.4 % (39-53); RED BLOOD COUNT 5.26 M/uL (4.00-5.50); WHITE BLOOD COUNT 12.2 K/uL (4.1-10.2)
[2017-10-16 00:09] LABS: PTT 30.6 SEC (25-37)
[2017-10-16 00:12] LABS: ALBUMIN 4.2 g/dL (3.2-4.8); CHLORIDE 107 mEq/L (99-109); POTASSIUM 4.5 mEq/L (3.7-5.4); SODIUM 142 mEq/L (136-147)
[2017-10-16 00:13] LABS: MAGNESIUM 2.4 mg/dL (1.3-2.7)
[2017-10-16 00:15] LABS: GLUCOSE 186 mg/dL (70-99); TOTAL PROTEIN 6.7 g/dL (6.4-8.3)
[2017-10-16 00:17] LABS: TOTAL BILIRUBIN 0.6 mg/dL (0.0-1.0)
[2017-10-16 00:18] LABS: ALKALINE PHOSPHATASE 90 IU/L (3-129)
[2017-10-16 00:19] LABS: CREATININE 0.9 mg/dL (0.6-1.3); GFR ESTIMATE (CALCULATED) > 59 mL/min/ (58.99-99999)
[2017-10-16 00:20] LABS: AST (GOT) 19 IU/L (2-34); UREA NITROGEN (BUN) 16 mg/dL (9-23)
[2017-10-16 00:22] LABS: ALT (GPT) 19 IU/L (3-49); LIPASE 12 U/L (1.0-51.0)
[2017-10-16 03:09] LABS: APPEARANCE CLEAR ((CLEAR)); BILIRUBIN NEGATIVE; BLOOD NEGATIVE; COLOR YELLOW ((YELLOW)); GLUCOSE (STRIP) 50; KETONES NEGATIVE; LEUKOCYTES NEGATIVE; NITRITE NEGATIVE; PROTEIN (STRIP) NEGATIVE; SPECIFIC GRAVITY 1.042 (1.000-1.030); UCUL ADDED? NO; UROBILINOGEN 0.2 MG/DL (0.2-1.0)
[2017-10-16 08:01] VITALS: BP 191/86
[2017-10-16 11:39] VITALS: BP 165/79
[2017-10-16 12:51] LABS: BASOPHIL (%) 0.4 % (0-1); BASOPHIL COUNT 0.1 K/uL (0-0.1); EOSINOPHIL (%) 1.2 % (0-5); EOSINOPHIL COUNT 0.1 K/uL (0-0.3); HEMATOCRIT 43.6 % (38.0-50.0); HEMOGLOBIN 14.8 G/DL (12.5-16.6); IMMATURE GRANULOCYTE (%) 0.3 % (0.0-0.7); LYMPHOCYTE (%) 23.2 % (15-42); LYMPHOCYTE COUNT 2.8 K/uL (1.0-2.8); MCH 31.1 PG (29.0-34.0); MCHC 33.9 G/DL (30.0-36.0); MCV 91.6 FL (86-99); MONOCYTE (%) 9.8 % (3-12); MONOCYTE COUNT 1.2 K/uL (0-0.8); NEUTROPHIL (%) 65.1 % (45-76); NEUTROPHIL COUNT 7.7 K/uL (1.8-6.4); PLATELET COUNT 217 K/uL (156-360); RBC DIS.WIDTH-CV 15.1 % (11.8-14.6); RBC DIS.WIDTH-SD 50.8 % (39-53); RED BLOOD COUNT 4.76 M/uL (4.00-5.50); WHITE BLOOD COUNT 11.9 K/uL (4.1-10.2)
[2017-10-16 13:06] LABS: ALBUMIN 3.7 g/dL (3.2-4.8)
[2017-10-16 13:07] LABS: CHLORIDE 110 mEq/L (99-109); POTASSIUM 4.3 mEq/L (3.7-5.4); SODIUM 143 mEq/L (136-147)
[2017-10-16 13:09] LABS: TOTAL PROTEIN 5.9 g/dL (6.4-8.3)
[2017-10-16 13:10] LABS: GLUCOSE 104 mg/dL (70-99)
[2017-10-16 13:12] LABS: ALKALINE PHOSPHATASE 77 IU/L (3-129); TOTAL BILIRUBIN 0.9 mg/dL (0.0-1.0)
[2017-10-16 13:13] LABS: CREATININE 0.8 mg/dL (0.6-1.3); GFR ESTIMATE (CALCULATED) > 59 mL/min/ (58.99-99999)
[2017-10-16 13:14] LABS: AST (GOT) 15 IU/L (2-34); UREA NITROGEN (BUN) 10 mg/dL (9-23)
[2017-10-16 13:15] LABS: ALT (GPT) 16 IU/L (3-49)
[2017-10-16] MEDS ORDERED: GLUCOPHAGE500 MG PO (13:54)
[2017-10-16] MEDS ORDERED: LOW DOSE ASPIRI81 M1 PO (13:54)
[2017-10-16] MEDS ORDERED: COZAAR50 MG PO (13:57)
[2017-10-16 16:17] VITALS: BP 177/78
[2017-10-16 19:22] VITALS: BP 141/84
[2017-10-17 07:35] VITALS: BP 179/81
[2017-10-17] MEDS ORDERED: COLACE100 MG PO (08:21)
== END 2017-10-17 09:31 | disposition left against medical advice (07) | DRG 394 ==
LOC: EME 21:59 → EDOF 10-16 04:10 → ENRESERV 10-16 04:20 → 3EAST 10-16 07:06
PROVIDERS: Emergency Medicine; Surgery
DX: K43.3 Parastomal hernia with obstruction, without gangrene (principal); K56.50 Intestinal adhesions [bands], unspecified as to partial versus complete obstruction; I10 Essential (primary) hypertension; F17.210 Nicotine dependence, cigarettes, uncomplicated; E11.9 Type 2 diabetes mellitus without complications; M48.00 Spinal stenosis, site unspecified; E66.9 Obesity, unspecified; K80.20 Calculus of gallbladder without cholecystitis without obstruction; F41.0 Panic disorder [episodic paroxysmal anxiety]; Z68.34 Body mass index [BMI] 34.0-34.9, adult; F41.9 Anxiety disorder, unspecified; Z82.49 Family history of ischemic heart disease and other diseases of the circulatory system; Z93.3 Colostomy status; Z87.442 Personal history of urinary calculi
CPT/HCPCS: 74019; 74177; 80053; 81003; 83605; 83690; 83735; 85025; 85027; 85610; 85730; 99281; 99285; J2405; J3010; J7030; J7040